=== PATIENT | female | born 1990 | race Asian ===

== ENCOUNTER 2021-06-10 09:09 | Outpatient (CLI) | payer OTHER | END 2021-06-10 19:45 | disposition home or self-care (01) | LOC: SMA 09:09 | DX: R92.1 Mammographic calcification found on diagnostic imaging of breast (principal); R92.2 Inconclusive mammogram; N64.89 Other specified disorders of breast; N83.201 Unspecified ovarian cyst, right side; R93.89 Abnormal findings on diagnostic imaging of other specified body structures; R10.9 Unspecified abdominal pain; N63.0 Unspecified lump in unspecified breast | CPT/HCPCS: 76641; 76700-TC; 76830-TC; 76857; 77066 ==